=== PATIENT | female | born 1995 | race African-American/Black ===

== ENCOUNTER 2016-10-27 13:39 | Emergency (ER) | payer SELFPAY ==
[2016-10-27] MEDS ORDERED: Benzonatate 100 MG CAP ONE (14:54)
[2016-10-27] MEDS ORDERED: AMOXicillin 250 MG CAP ONE (14:54)
== END 2016-10-27 15:02 | disposition home or self-care (01) ==
LOC: MADERS 13:39
DX: J20.9 Acute bronchitis, unspecified (principal)
CPT/HCPCS: 99283

== ENCOUNTER 2018-02-14 15:23 | Emergency (ER) | payer MEDICAID, SELFPAY ==
[2018-02-14] MEDS ORDERED: Naproxen 500 MG TAB ONE (15:50)
[2018-02-14] MEDS ORDERED: AMOXicillin 250 MG CAP ONE (15:50)
== END 2018-02-14 15:58 | disposition home or self-care (01) ==
LOC: MADERS 15:23
DX: K02.9 Dental caries, unspecified (principal); K04.7 Periapical abscess without sinus
CPT/HCPCS: 99282

== ENCOUNTER 2023-07-01 | Emergency (ER) | payer SELFPAY ==
[2023-07-01] MEDS ORDERED: Lorazepam 2 MG/ML VIAL ONE ×2 (00:23→00:56)
[2023-07-01] MEDS ORDERED: Sodium Chloride 0.9% 1,000 ML ONE ×3 (00:23→02:20)
[2023-07-01 00:35] LABS: BHCG - Serum Negative (NEGATIVE); Pregs Control Background? CLEAR/WHITE (CLR/WHITE); Pregs Control Bar Appear? YES (CONTROL BAR)
[2023-07-01 00:40] LABS: Hematocrit 40.6 % (36.0-47.0); Hemoglobin 12.4 g/dL (12.0-16.0); MDiff Complete? YES; Mean Corpuscular HGB CONC 30.5 g/dL (32.0-36.0); Mean Corpuscular Hemoglobin 24.8 pg (27.0-31.0); Mean Corpuscular Volume 81.4 fl (78.0-98.0); Mean Platelet Volume 9.5 fL (7.4-10.4); Platelet Count 310 10x3/uL (130-400); RBC Distribution Width 13.6 % (11.5-14.5); White Blood Cell (WBC) Count 10.2 10x3/uL (4.8-10.8)
[2023-07-01 00:41] LABS: Eosinophils 2 % (0-10); Lymphocytes 57 % (21-51); Monocytes 17 % (0-10); Neutrophil 24 % (42-75); Platelet Adequacy Comment Appears Adequate
[2023-07-01 01:11] LABS: ALT (SGPT) 26 U/L (8-55); AST (SGOT) 20 U/L (5-34); Alkaline Phosphatase 81 U/L (40-110); Anion Gap 18 mmol/L (10-20); BUN (Urea Nitrogen) 9 mg/dL (7.0-18.7); Bilirubin, Total 0.3 mg/dL (0.2-1.2); Calc. Creatinine Clearance 0 mL/min (70-130); Calcium 9.4 mg/dL (7.8-10.44); Carbon Dioxide 18 mmol/L (22-29); Chloride 104 mmol/L (98-107); Estimated GFR 110; Globulin 4.1 g/dL (2.4-3.5); Glucose 134 mg/dL (70-105); Protein, Total 8.1 g/dL (6.0-8.3); Sodium 137 mmol/L (136-145)
[2023-07-01 01:12] LABS: Acetaminophen Less than 10 mcg/mL (10.0-30.0); Alcohol Less than 10.0 mg/dL (Less than 10); Lipase 28 U/L (8-78); Magnesium 1.6 mg/dL (1.6-2.6); Salicylate Less than 8.0 mg/dL (15.0-30.0)
[2023-07-01 01:14] LABS: Potassium 2.5 mmol/L (3.5-5.1)
[2023-07-01] MEDS ORDERED: Potassium Chloride 20 MEQ TAB ONE (01:23)
[2023-07-01] MEDS ORDERED: Magnesium 2 GM/50 ML BAG (IN WATER) ONE ×2 (01:23→01:25)
[2023-07-01] MEDS ORDERED: predniSONE 20 MG TAB ONE (01:24)
[2023-07-01] MEDS ORDERED: Potassium Chloride 10 MEQ TAB ONE (01:25)
[2023-07-01] MEDS ORDERED: Potassium Chloride 20 MEQ/100 ML PREMIX BAG ONE (01:37)
[2023-07-01 03:44] LABS: Anion Gap 12 mmol/L (10-20)
[2023-07-01 03:56] LABS: BUN (Urea Nitrogen) 9 mg/dL (7.0-18.7); Calc. Creatinine Clearance 0 mL/min (70-130); Calcium 8.2 mg/dL (7.8-10.44); Carbon Dioxide 20 mmol/L (22-29); Chloride 106 mmol/L (98-107); Estimated GFR 125; Glucose 118 mg/dL (70-105); Potassium 4.4 mmol/L (3.5-5.1); Sodium 134 mmol/L (136-145)
== END 2023-07-01 04:17 | disposition home or self-care (01) ==
LOC: MADERS
DX: E87.6 Hypokalemia (principal); E83.42 Hypomagnesemia
CPT/HCPCS: 80053; 80307; 83690; 83735; 84703; 85025; 93005; 96361; 96365; 96366; 96367; 96375; 96376; J2060; J3475; J3480; J7050; J7512